=== PATIENT | female | born 1945 | race Caucasian/White ===

== ENCOUNTER → 2018-01-08 07:49 | Outpatient (CLI) | payer MEDICARE, OTHER ==
[2016-09-24 16:20] VITALS: BMI 32.1
[~2018-01-08 07:49] MED LIST: BAYER CHEWABLE81 MG PO; CLEOCIN HCL300 MG PO; EFFEXOR XR150 MG PO; GLUCOPHAGE1000 MG PO; HUMALOG 30100 UNITS/ INJ; LIPITOR10 MG PO; LOPRESSOR50 MG PO; LOSARTAN POTASS25 MG PO; MOBIC7.5 MG PO; MUCINEX DM ER1 EAC1 PO; PLAVIX75 MG PO; PRAVACHOL20 MG; PRAVACHOL20 MG PO; PREDNISONE; SYNTHROID112 MCG PO; TOPROL XL50 MG PO; XANAX0.25 MG PO
== END | disposition home or self-care (01) ==
LOC: D.RAD 07:49
DX: R13.10 Dysphagia, unspecified (principal)

== ENCOUNTER 2018-01-09 06:02 | Outpatient (CLI) | payer MEDICARE, OTHER ==
[2016-09-24 16:20] VITALS: BMI 32.1
--- NOTE | ~2018-01-09 | HEMODYNAMI ---
PATIENT:GARRET FERGUSON MEDICAL RECORD: [id number] : 49 LOCATION:DJAMI ADMISSION DATE: 01/09/18 Generatedon:01/09/20188:34 Patient name: GARRET FERGUSON Patient #: [id number] SSN: : 1945 Date of study: 01/09/2018 Page: Of Hemodynamic Procedure Report Patient Data Patient Demographics Procedure consent was obtained First Name: GARRET Gender: Female Last Name: MARTY : 1945 Patient #: [id number] Age: 72 year(s) Race: Unknown Additional ID: [id number] Contact details Address: [address] [place], [place] [address] [facility] State: [place] [facility] [place]: [address] Past Medical History Allergies Allergen Reaction Date Comments Reported Sulfa drugs 03/14/2016 Shellfish 03/14/2016 Sulfa drugs 01/09/2018 Shellfish 01/09/2018 Other allergy 01/09/2018 lisinopril Admission Admission Data Admission Date: 01/09/2018 Admission Time: 6:02 Procedure Procedure Types Cath Procedure Diagnostic Procedure LHC LHC w/Coronaries w/Grafts PCI Procedure PTCA PTCA Initial Miscellaneous Procedures Moderate Sedation up to 30 minutes Procedure Description Procedure Date Procedure Date: 01/09/2018 Procedure Start Time: 8:04 Procedure End Time: 8:33 Procedure Staff Name Function Nakul Escalante MD Performing Physician Rajwinder Tam RT Monitor Finn Gottlieb RT Scrub Lukas Humphrey RN Nurse Greg Fulton RN Bakery Worker Procedure Data Cath Procedure Fluoroscopy Diagnostic fluoroscopy Total fluoroscopy Time: 6.3 time: 6.3 min min Diagnostic fluoroscopy Total fluoroscopy dose: 853 dose: 853 mGy mGy Contrast Material Contrast Material Type Amount (ml) Isovue 300 105 Entry Location Entry Primary Successful Side Size Upsize Upsize Entry Closure Succes sful Closure Location (Fr) 1 (Fr) 2 (Fr) Remarks Device Remarks Femoral Right 5 Fr 6 Fr Exoseal artery Short Estimated blood loss: 10 ml Diagnostic catheters Device Type Used For End Catheter Placement MULTIPACK JL 4.0 5Fr Left Coronary catheter Angiography MULTIPACK 3DRC 5Fr Right Coronary catheter Angiography DIAGNOSTIC IMT 5Fr Internal mammary Catheter ([id number]) arteriography MULTIPACK Pigtail 5 Fr LV Angiography catheter Procedure Complications No complications Procedure Medications Medication Administration Route Dosage 0.9% NaCl I.V. 100 ml/hr Oxygen NC 2 l/min Heparin Flush Bag added to field 2 bags (1000units/500ml NS) Lidocaine 2% added to field 20 Benadryl I.V. 50 mg Versed I.V. 2 mg Fentanyl I.V. 100 mcg Heparin Bolus I.V. 8400 units Plavix P.O. 600 mg Hemodynamics Rest Heart Rate: 66 (bpm) Pressure Samples Time Site Value (mmHg) Purpose Heart Use Rate(bpm) 8:15 LV 173/-3,18 EDP 63 8:16 LV 195/-6,16 Snapshot 76 8:16 AO (114) Pullback 63 8:16 LV 176/-5,19 Pullback 63 Gradients Valve Time Site 1 Site Mean SEP/DFP Peak To Heart Use 2 (mmHg) (sec/min) Peak Rate (mmHg) (bpm) Aortic 8:16 LV AO 8 18 63 176/-5,19 (114) Calculations Valve P-P Mean Valve Index Valve Source Name Gradient Area Flow (cm2) Aortic 8 8 Snapshots Pre Cath Intra NCS Post Cath Vital Signs Time Heart Resp SPO2 etCO2 NIBP (mmHg) Rhythm Pain Sedation Rate (ipm) (%) (mmHg) Status Level (bpm) 7:52:21 67 12 97 36.4 177/82(139) NSR 0 (11) 10(A) , No pain 7:57:12 69 14 98 41.7 180/76(120) NSR 0 (11) 10(A) , No pain 8:02:01 72 13 97 43.9 164/71(119) NSR 0 (11) 9(A) , No pain 8:06:50 72 13 98 45.4 162/71(126) NSR 0 (11) 9(A) , No pain 8:12:21 76 14 97 44.7 178/75(134) NSR 0 (11) 9(A) , No pain 8:17:10 75 14 97 46.2 167/68(125) NSR 0 (11) 9(A) , No pain 8:21:57 73 14 97 46.2 159/76(133) NSR 0 (11) 9(A) , No pain 8:26:46 76 14 97 45.5 156/67(118) NSR 0 (11) 10(A) , No pain 8:31:33 77 16 98 31.8 170/74(137) NSR 0 (11) 10(A) , No pain Medications Time Medication Route Dose Verified Delivered Reason Notes Effectiveness by by 7:48:32 0.9% NaCl I.V. 100 Lukas Lukas Per physician ml/hr Milagro Humphrey RN RN 7:48:47 Oxygen NC 2 Lukas Lukas Per physician l/min Milagro Humphrey RN RN 7:48:58 Heparin Flush added 2 Lukas Lukas for local Bag to bags Lorigan Milagro anesthetic (1000units/500ml field NÚÑEZ RN NS) 7:49:11 Lidocaine 2% added 20ml Lukas Lukas for local to vial Lorigan Lorabigail anesthetic field NÚÑEZ RN 7:49:30 Benadryl I.V. 50 mg Lukas Lukas Per physician Milagro Humphrey RN RN 7:57:05 Versed I.V. 2 mg Lukas Lukas for sedation Milagro Humphrey RN RN 7:57:15 Fentanyl I.V. 100 Lukas Lukas for sedation mcg Milagro Humphrey RN RN 8:22:43 Heparin Bolus I.V. 8,400 Lukas Lukas for units Milagro Humphrey anticoagulation RN RN 8:34:02 Plavix P.O. 600 Lukas Lukas for mg Milagro Humphrey antiplatelet RN RN therapy Procedure Log Time Note 7:32:45 Greg Fulton RN sent for patient. Start room use. 7:32:46 Time tracking: Regular hours 7:32:50 Plan of Care:Hemodynamics will remain stable., Cardiac rhythm will remain stable., Comfort level will be maintained., Respiratory function will remain adequate., Patient/ family verbilizes understanding of procedure., Procedure tolerated without complication., Recovers from procedure without complications.. 7:40:00 Patient received from Pre/Post Procedure Room to [facility] 1 Alert and oriented. Tansferred to table in Supine position. 7:40:01 Warm blankets applied, and diego hugger turned on for patient comfort. 7:40:02 Correct patient and procedure confirmed by team. 7:40:03 Signed procedure consent form obtained from patient. 7:40:04 ECG and BP/O2 sat monitors applied to patient. 7:48:32 0.9% NaCl 100 ml/hr I.V. was administered by Lukas Humphrey RN; Per physician; 7:48:47 Oxygen 2 l/min NC was administered by Lukas Humphrey RN; Per physician; 7:48:58 Heparin Flush Bag (1000units/500ml NS) 2 bags added to field was administered by Lukas Humphrey RN; for local anesthetic; 7:49:11 Lidocaine 2% 20ml vial added to field was administered by Lukas Humphrey RN; for local anesthetic; 7:49:30 Benadryl 50 mg I.V. was administered by Lukas Humphrey RN; Per physician; 7:49:33 Vital chart was started 7:50:11 Baseline sample Acquired. 7:50:35 Rhythm: sinus rhythm 7:50:37 Full Disclosure recording started 7:50:50 H&P Date Dictated: 01/09/2018 Within 30 days and on chart., H&P Addendum completed by physician on day of procedure. (MUST COMPLETE FOR ALL OUTPATIENTS). 7:51:21 Pre-procedure instructions explained to patient. 7:51:21 Pre-op teaching completed and patient verbalized understanding. 7:51:28 Family in patients room. 7:51:33 Patient NPO since Midnight. 7:51:59 Patient allergic to Sulfa drugs 7:52:05 Patient allergic to Shellfish 7:52:17 Patient allergic to Other allergylisinopril 7:52:53 Is the patient allergic to Iodine/contrast media? No. 7:53:22 patient allergic to shellfish. 7:53:25 Was the patient premedicated? Yes 7:53:27 Is patient on blood thinner?No 7:53:30 Patient diabetic? Yes. 7:53:32 If diabetic: On Metformin? Yes 7:54:26 If on Metformin: Last Dose? 01/07/2018 7:54:30 Previous problem with sedation/anesthesia? No ? 7:54:31 Snore? Yes 7:54:31 Sleep apnea? Yes 7:54:32 Deviated septum? No 7:54:33 Opens mouth fully? Yes 7:54:34 Sticks out tongue? Yes 7:54:36 Airway obstruction? No ? 7:54:38 Dentures? No ? 7:54:40 Pre procedure: right dorsailis pedis pulse 2+ Normal; easily identifiable; not easily obliterated 7:54:44 Patient pain scale 0/10 ?. 7:54:48 IV patent on arrival in left hand with 0.9% NaCl at [facility]. 7:54:51 Lab results completed and on chart. 7:54:53 Right groin area was prepped with chlora-prep and draped in sterile fashion 7:54:54 Alarms reviewed by R. N. 7:54:54 Sharps counted by scrub and verified by R.N. 7:54:58 Use device set Femoral Dx 7:54:59 ACIST Syringe (01535) opened to sterile field. 7:54:59 Bag Decanter (2002S) opened to sterile field. 7:55:00 Medline Cath Pack ([id number]) opened to sterile field. 7:55:00 SHEATH 5FR [place] (LNK733) opened to sterile field. 7:55:01 DIAGNOSTIC WIRE .035 260cm J wire (989490) opened to sterile field. 7:55:02 ACIST Hand Control (02356) opened to sterile field. 7:55:03 ACIST Manifold (22152) opened to sterile field. 7:55:04 DIAGNOSTIC Multipack 5Fr catheter set (LN8655) opened to sterile field. 7:55:05 Tegaderm 4 x 4 (1626W) opened to sterile field. 7:55:06 PERCUTANEOUS ENTRY 19GA needle opened to sterile field. 7:56:38 Final Timeout: patient, procedure, and site verified with staff and physician. All members of the team are in agreement. 7:56:39 Right groin site verified by team. 7:56:42 Physical assessment completed. ASA score P 2 - A patient with mild systemic disease as per Nakul Escalante MD. 7:56:46 Sedation plan: IV Moderate Sedation Medication:Versed, Fentanyl 7:57:05 Versed 2 mg I.V. was administered by Lukas Humphrey RN; for sedation; 7:57:15 Fentanyl 100 mcg I.V. was administered by Lukas Humphrey RN; for sedation; 8:02:51 Zero performed for pressure channel P1 8:04:45 Procedure started. 8:04:59 Local anesthetic to right femoral artery with Lidocaine 2% by Nakul Escalante MD.INITIAL ACCESS ONLY 8:06:39 A 5 Fr sheath was inserted into the Right Femoral artery 8:07:09 A MULTIPACK JL 4.0 5Fr catheter was advanced over the wire and used for Left Coronary Angiography. 8:09:29 Catheter removed. 8:10:04 A MULTIPACK 3DRC 5Fr catheter was advanced over the wire and used for Right Coronary Angiography. 8:11:07 Catheter removed. 8:12:02 A DIAGNOSTIC IMT 5Fr Catheter ([id number]) was advanced over the wire and used for Internal mammary arteriography.FLORY to LAD 8:14:37 Catheter removed. 8:15:46 A MULTIPACK Pigtail 5 Fr catheter was advanced over the wire and used for LV Angiography. 8:16:10 LV gram done using AARON 8:16:12 LV hemodynamics recorded. 8:16:14 Injector settings: Ml/sec: 10, Volume: 20, 8:16:23 EF : 60 % 8:17:05 Catheter removed. 8:17:14 Use device set Motivity Labs PCI 8:17:15 INFLATOR Merit BasixCompak (BZ3650) opened to sterile field. 8:17:17 SHEATH 6FR [place] (ZGX135) opened to sterile field. 8:17:19 BMW 300cm Davis 2 J wire ([id number]) opened to sterile field. 8:17:21 GUIDE 6FR XBLAD 3.5 catheter ([id number]) opened to sterile field. 8:17:32 Sheath upsized to a 6 Fr Short. 8:17:40 6 Fr XBLAD 3.5 guide catheter was inserted over the wire 8:18:43 TUBING High Pressure Extension Tubing (Escalante) (RF6543U) opened to sterile field. 8:22:01 BMW wire advanced. 8:22:43 Heparin Bolus 8,400 units I.V. was administered by Lukas Humphrey RN; for anticoagulation; 8:25:11 Inflation number: 1 A EUPHORA 3.0 x 20 Balloon ([id number]) was prepped and advanced across the Mid CX, then inflated to 14 REGINA for 0:29 (min:sec). 8:25:35 Inflation number: 2 The EUPHORA 3.0 x 20 Balloon ([id number]) was reinflated across the Mid CX, to 14 REGINA for 0:09 (min:sec). 8:26:16 Inflation number: 3 The EUPHORA 3.0 x 20 Balloon ([id number]) was reinflated across the Mid CX, to 14 REGINA for 0:19 (min:sec). 8:27:22 Stent catheter was removed intact over wire. 8:27:22 Wire removed. 8:27:22 Guide catheter removed. 8:27:35 Sheath removed intact; hemostasis achieved with Exoseal to the Right Femoral artery. 8:27:37 Procedure ended.(Physican Out) 8:27:50 Fluoroscopy time 06.30 minutes. 8:28:04 Flurop Dose total: 853 8:28:04 Fluoroscopy dose: 853 mGy 8:28:07 Contrast amount:Isovue 300 105ml. 8:28:10 EXOSEAL 6Fr (EX600) opened to sterile field. 8:28:13 Sharps counted by scrub and verified by R.N. 8:28:15 Insertion/operative site no bleeding no hematoma. 8:28:17 Post-op/insertion site Right Femoral artery dressed using a 4 x 4 and Tegaderm. 8:28:20 Post right femoral artery:stable, clean and dry 8:28:22 Post Procedure Pulses reassessed and unchanged 8:28:25 Post-procedure physical assessment completed. ASA score P 2 - A patient with mild systemic disease as per Nakul Escalante MD. 8:28:27 Post procedure rhythm: unchanged. 8:28:30 Estimated blood loss: 10 ml 8:28:32 Post procedure instruction explained to patient.Patient verbalizes understanding. 8:28:32 Patient needs reinforcement of post procedure teaching. 8:28:43 Procedure type changed to Cath procedure, Diagnostic procedure, LHC, LHC w/Coronaries w/Grafts, PCI procedure, PTCA, PTCA Initial, Miscellaneous Procedures, Moderate Sedation up to 30 minutes 8:29:25 Procedure Complication : No complications 8:29:28 See physician's report for complete and final results. 8:30:47 Procedure and supply charges have been captured, reviewed, submitted and are correct. 8:32:43 Vital chart was stopped 8:32:45 Report given to Pre/Post Procedure Room. 8:32:49 Patient transfered to Pre/Post Procedure Room with Stretcher. 8:32:59 Procedure ended. 8:32:59 Full Disclosure recording stopped 8:33:33 End room use (Document Last) 8:34:02 Plavix 600 mg P.O. was administered by Lukas Humphrey RN; for antiplatelet therapy; Intervention Summary Intervention Notes Time ActionType Lesion and Equipment Action# Pressure Duration Attributes Used 8:25:11 Inflate Mid CX EUPHORA 1 14 00:29 balloon 3.0 x 20 Balloon ([id number]) 8:25:35 Reinflate Mid CX EUPHORA 2 14 00:09 balloon 3.0 x 20 Balloon ([id number]) 8:26:16 Reinflate Mid CX EUPHORA 3 14 00:19 balloon 3.0 x 20 Balloon ([id number]) Device Usage Item Name Manufacture Quantity Catalog Number Hospital Part Current Mini mal Lot# / Charge Number Stock Stock Serial# Code ACIST Acist 1 23075 191263 229063 044800 20 Syringe Medical (71009) Systems Inc Bag Decanter Microtek 1 2001S 302937 54319 155058 5 (2001S) Medical Inc. Medline Cath Cardinal 1 [id number] 717589 83637 577296 5 Pack Health ([id number]) SHEATH 5FR Terumo 1 FJC735 718748 493149 349047 40 [place] (UGB496) DIAGNOSTIC St Balta 1 969785 338003 480598 839278 30 WIRE .035 260cm J wire (487812) ACIST Hand Acist 1 79994 911460 299100 947022 5 Control Medical (27688) Systems Inc ACIST Acist 1 87055 369627 484177 262089 5 Manifold Medical (94120) Systems Inc DIAGNOSTIC Cardinal 1 OO4946 874464 86522 725232 30 Multipack Health 5Fr catheter set (MH6690) Tegaderm 4 x 3M 1 1626W 197493 584184 962582 5 4 (1626W) PERCUTANEOUS Cook Medical 1 C31762 780736 554917 5 ENTRY 19GA needle MULTIPACK JL Cardinal 1 003176 5 4.0 5Fr Health catheter MULTIPACK Cardinal 1 378846 5 3DRC 5Fr Health catheter DIAGNOSTIC Reynolds 1 [id number] 426408 757065 52323 5 IMT 5Fr Scientific Catheter ([id number]) MULTIPACK Cardinal 1 958414 5 Pigtail 5 Fr Health catheter INFLATOR Merit 1 HK4961 228192 433531 531652 15 Merit Medical BasixCompak (QJ1730) SHEATH 6FR Terumo 1 BEI775 855878 574905 923283 40 [place] (DOS263) BMW 300cm Desai 1 [id number] 175516 593469 583535 5 Davis 2 Vascular J wire (6773385V) GUIDE 6FR Cardinal 1 12187397 411384 832158 207998 10 XBLAD 3.5 Health catheter (04407839) TUBING High Merit 1 EA9412S 170599 66893 138597 10 Pressure Medical Extension Tubing (Escalante) (TA2697D) EUPHORA 3.0 Medtronic 1 [id number] 126052 545478 130445 5 [id number] x 20 Balloon ([id number]) EXOSEAL 6Fr Cardinal 1 EX600 055224 411855 374047 10 (EX600) Health Signature Audit [place] Stage Time Signature Unsigned Intra-Procedure 01/09/2018 Rajwinder 8:34:30 AM Counts RT(R) Signatures Monitor : Rajwinder Signature : Counts RT Date : Time : [id number] [place] [address]
[~2018-01-09 06:02] MED LIST changes: -LOSARTAN POTASS25 MG PO
[2018-01-09] MEDS ORDERED: LOSARTAN POTASS25 MG PO (06:33)
[2018-01-09] MEDS ORDERED: LIPITOR10 MG PO (06:34)
[2018-01-09 06:36] LABS: BASOPHILS 0.4 % (0-2); EOSINOPHILS 0.8 % (0-7); HEMATOCRIT 38.5 % (36.0-48.0); HEMOGLOBIN 12.9 g/dL (12-16); IMMATURE GRANULOCYTES 0.3 % (0-5); LYMPHOCYTES 30.7 % (15-50); MCH 28.8 pg (26.0-34.0); MCHC 33.5 g/dL (31.0-37.0); MCV 85.9 fL (80.0-100.0); MONOCYTES 6.7 % (2-11); NEUTROPHILS 61.1 % (40-80); PLATELET COUNT 216 10x3/uL (130-400); RBC 4.48 10x6/uL (4.00-5.40); RDW 12.9 % (11.5-14.5); WBC 7.2 10x3/uL (4.8-10.8)
[2018-01-09 07:27] LABS: ANION GAP 14.4 mmol/L (8-16); CALCIUM 9.5 mg/dL (8.5-10.1); CARBON DIOXIDE 26.6 mmol/L (21.0-32.0); CREATININE - SERUM 0.9 mg/dL (0.6-1.3)
[2018-01-09] MEDS ORDERED: PLAVIX75 MG PO (09:26)
== END 2018-01-09 13:05 | disposition home or self-care (01) ==
LOC: D.CATH 06:02
PROVIDERS: Internal Medicine Cardiovascular Disease
DX: I25.119 Atherosclerotic heart disease of native coronary artery with unspecified angina pectoris (principal); I10 Essential (primary) hypertension; E78.5 Hyperlipidemia, unspecified; Z01.812 Encounter for preprocedural laboratory examination

== ENCOUNTER 2018-01-27 06:27 | Day surgery (SDC) | payer MEDICARE, OTHER ==
[~2018-01-27] VITALS: Ht 160 cm; Wt 83.6 kg
[~2018-01-27 06:27] MED LIST changes: +LOSARTAN POTASS25 MG PO
[2018-01-27 07:10] VITALS: BP 156/68; Ht 160 cm; Wt 83.6 kg
[2018-01-27 08:16] LABS: HEMATOCRIT 34.8 % (36.0-48.0); HEMOGLOBIN 11.2 g/dL (12-16); MCH 27.9 pg (26.0-34.0); MCHC 32.2 g/dL (31.0-37.0); MCV 86.6 fL (80.0-100.0); MEAN PLATELET VOLUME 10.1 fL (7.4-10.4); RBC 4.02 10x6/uL (4.00-5.40); RDW 12.8 % (11.5-14.5); WBC 6.2 10x3/uL (4.8-10.8)
[2018-01-27 08:19] LABS: CALC OSMOLALITY 284 mosm/kg (275-300); CALCIUM 8.8 mg/dL (8.5-10.1); CHLORIDE - SERUM 109 mmol/L (98-107); CREATININE - SERUM 0.8 mg/dL (0.6-1.3); GLUCOSE 107 mg/dL (74-106); POTASSIUM - SERUM 3.5 mmol/L (3.5-5.1); SODIUM 143 mmol/L (136-145); UREA NITROGEN 13 mg/dL (7-18); eGFR NON AFRICAN AMERICAN 75 mL/min (90-120)
== END 2018-01-27 11:16 | disposition home or self-care (01) ==
LOC: D.OPS 06:27
PROVIDERS: Anesthesiology
DX: R13.10 Dysphagia, unspecified (principal); R11.10 Vomiting, unspecified; E66.9 Obesity, unspecified; E11.9 Type 2 diabetes mellitus without complications; I10 Essential (primary) hypertension; E03.9 Hypothyroidism, unspecified; G47.30 Sleep apnea, unspecified; Z95.1 Presence of aortocoronary bypass graft; Z01.812 Encounter for preprocedural laboratory examination

== ENCOUNTER 2018-03-03 05:12 | Day surgery (SDC) | payer MEDICARE, OTHER ==
[~2018-03-03] VITALS: Ht 160 cm; Wt 85.7 kg
[2018-03-03 06:11] LABS: HEMATOCRIT 39.1 % (36.0-48.0); MCH 28.9 pg (26.0-34.0); MCHC 33.2 g/dL (31.0-37.0); MCV 86.9 fL (80.0-100.0); MEAN PLATELET VOLUME 9.9 fL (7.4-10.4); RBC 4.5 10x6/uL (4.00-5.40); RDW 12.7 % (11.5-14.5); WBC 7.2 10x3/uL (4.8-10.8)
[2018-03-03] MEDS ORDERED: GLYBURIDE5 M1 PO (06:12)
[2018-03-03 06:31] VITALS: BP 151/61; BMI 33.5
[2018-03-03 06:32] LABS: ANION GAP 12.6 mmol/L (8-16); CALCIUM 8.8 mg/dL (8.5-10.1); CARBON DIOXIDE 28.5 mmol/L (21.0-32.0); CREATININE - SERUM 0.9 mg/dL (0.6-1.3); POTASSIUM - SERUM 4.1 mmol/L (3.5-5.1)
[2018-03-03] MEDS ORDERED: HYDROCODON-ACE1 EAC7 PO (11:50)
[2018-03-04 12:25] VITALS: Ht 160 cm; Wt 85.7 kg
== END 2018-03-03 12:25 | disposition home or self-care (01) ==
LOC: OBSVTIME → D.OPS 05:12 → OBSVTIME 05:12 → D.SDCHOLD 05:12 → D.OPS 08:00 → D.PAN 08:00 → EDSTATUS 08:00 → D.SDCHOLD 12:25 → D.OPS 12:25 → D.SDCHOLD 12:25
PROVIDERS: Anesthesiology; Surgery
PROC: 0JPT3WZ Removal of Totally Implantable Vascular Access Device from Trunk Subcutaneous Tissue and Fascia, Percutaneous Approach (ICD-10-PCS; 2018-03-03)
PROC: 0DP64CZ Removal of Extraluminal Device from Stomach, Percutaneous Endoscopic Approach (ICD-10-PCS; principal; 2018-03-03 08:00)
DX: R13.10 Dysphagia, unspecified (principal); E66.9 Obesity, unspecified; K21.9 Gastro-esophageal reflux disease without esophagitis; Z68.35 Body mass index [BMI] 35.0-35.9, adult; E78.5 Hyperlipidemia, unspecified; E11.9 Type 2 diabetes mellitus without complications; I10 Essential (primary) hypertension; R11.10 Vomiting, unspecified; E03.9 Hypothyroidism, unspecified; Z79.4 Long term (current) use of insulin; Z96.41 Presence of insulin pump (external) (internal); M79.7 Fibromyalgia

== ENCOUNTER 2018-03-03 15:40 | Inpatient (IN) | payer MEDICARE, OTHER ==
[~2018-03-03] VITALS: Ht 160 cm; Wt 84.1 kg
--- NOTE | ~2018-03-03 | CN ---
PATIENT NAME:GARRET FERGUSON MEDICAL RECORD: [id number] : 49 LOCATION:. D.2113 ADMIT DATE: 03/04/18 ACCOUNT: [id number] CONSULTING PHYSICIAN: BAILEE BAUMANN MD REFERRING PHYSICIAN: HARRY BAILEY MD DATE OF CONSULTATION: 03/04/2018 Cardiology Consultation HISTORY OF PRESENT ILLNESS: She is a 73-year-old lady with a known history of coronary artery disease, status post most recently PCI to circumflex restenosis. She has a history of normal systolic function, admitted postoperatively with anemia, hyperglycemia, and syncope. She has been having some dyspnea and breathlessness slight multifactorial including intravascular volume depletion and anemia that is improving post-transfusion. We are asked to see her concerning her cardiovascular status. PAST MEDICAL HISTORY: Includes: 1. A history of diabetes mellitus. 2. Hypertension. 3. Dyslipidemia. 4. Gastroesophageal reflux disease. 5. Hypothyroidism, on replacement. MEDICATIONS: Include Glucophage 1 gram b.i.d., insulin pump, glyburide 5 mg p.o. every day, Synthroid 112 mcg every day, Mobic 7.5 b.i.d., aspirin 81 every day, Effexor 150 every day, losartan 25 every day, Lipitor 10 every day, metoprolol 25 every day. ALLERGIES: SULFA AND IODINE. SOCIAL HISTORY: , nonsmoker. Typically, takes care of all her ADLs. No set exercise program. REVIEW OF SYSTEMS: The patient reports easy bruising but reports no swollen glands. The patient reports no fever, no night sweats, no significant weight gain, no significant weight loss. No significant exercise tolerance. The patient reports no dry eyes, no irritation, no vision change. Patient reports no difficulty hearing and no ear pain. Patient reports no frequent nose bleeds or nose and sinus problems. Patient reports on arm pain on exertion. No shortness of breath while lying down. No history of heart murmur. Patient reports no cough, no wheezing or coughing up blood. Patient reports no abdominal pain, no vomiting. Normal appetite. No diarrhea and not vomiting blood. No nausea and no constipation. Patient reports no incontinence. No difficulty urinating. No hematuria. No increased frequency. Patient reports no muscle aches. No weakness, no arthralgias, no back pain. No swelling of the extremities. Patient reports no abnormal mole, no jaundice, no rashes. Reports no loss of consciousness. No weakness and no numbness. No seizures, dizziness, or headaches. The patient reports no depression, no sleep disturbance, feeling safe in a relationship and no alcohol abuse. Patient reports on fatigue. Reports no runny nose or sinus pressure. No itching, no hives, and no frequent sneezing. PHYSICAL EXAMINATION. GENERAL: Pleasant female in no acute distress, appears stated age. CONSULT REPORT [id number] GARRET FERGUSON VITAL SIGNS: Blood pressure 153/67, pulse 114 and regular. HEENT: Normocephalic, atraumatic. NECK: No JVD or bruit. HEART: Regular, II/ systolic ejection murmur, heard best primarily in aortic area. LUNGS: Good air excursion. ABDOMEN: Soft, nontender. EXTREMITIES: Pulse 2+. No edema. NEUROLOGIC: Grossly intact. IMPRESSION: Suspect more of a high output failure type symptomatology secondary to anemia. LV function normal approximately 2 months ago. Agree with transfusion. Thank you for the consultation. TRANSINT:[id number] Voice Confirmation ID: [id number] DOCUMENT ID: [id number] BAILEE BAUMANN MD at 1325 CC: [id number] DICTATION DATE: 03/04/18 1403 STATE EDITOR: 03/04/18 1518 ADM IN [address] [place] [address]
[~2018-03-03 15:40] MED LIST changes: +GLYBURIDE5 M1 PO; +HYDROCODON-ACE1 EAC7 PO
[2018-03-03 17:02] LABS: HEMOGLOBIN 9.7 g/dL (12-16); MCH 28.7 pg (26.0-34.0); MCHC 32.3 g/dL (31.0-37.0); MCV 88.8 fL (80.0-100.0); MEAN PLATELET VOLUME 10.5 fL (7.4-10.4); PLATELET COUNT 278 10x3/uL (130-400); RBC 3.38 10x6/uL (4.00-5.40); RDW 12.8 % (11.5-14.5); WBC 22.1 10x3/uL (4.8-10.8)
[2018-03-03 17:08] LABS: KETONE - SERUM NEGATIVE (NEGATIVE)
[2018-03-03 17:14] LABS: EOSINOPHILS 1 % (0-7); LYMPHOCYTES 9 % (15-50); NEUTROPHILS 90 % (40-80); PLATELET ESTIMATE NORMAL
[2018-03-03 17:16] LABS: ALKALINE PHOSPHATASE 85 U/L (46-116); ALT (SGPT) 56 U/L (10-68); CALCIUM 7.9 mg/dL (8.5-10.1); CHLORIDE - SERUM 105 mmol/L (98-107); PROTEIN - SERUM 5.9 g/dL (6.4-8.2); SODIUM 134 mmol/L (136-145)
[2018-03-03 17:19] LABS: CALC OSMOLALITY 289 mosm/kg (275-300); CREATININE - SERUM 1.6 mg/dL (0.6-1.3); UREA NITROGEN 17 mg/dL (7-18)
[2018-03-03 17:20] LABS: POTASSIUM - SERUM 5.6 mmol/L (3.5-5.1); eGFR NON AFRICAN AMERICAN 34 mL/min (90-120)
[2018-03-03 17:26] LABS: GLUCOSE 463 mg/dL (74-106)
[2018-03-03 20:29] VITALS: BP 143/43
[2018-03-03 22:55] LABS: BASOPHILS 0.1 % (0-2); EOSINOPHILS 0 % (0-7); HEMATOCRIT 24.8 % (36.0-48.0); HEMOGLOBIN 8.2 g/dL (12-16); IMMATURE GRANULOCYTES 0.2 % (0-5); LYMPHOCYTES 7.5 % (15-50); MCH 28.6 pg (26.0-34.0); MCHC 33.1 g/dL (31.0-37.0); MEAN PLATELET VOLUME 9.6 fL (7.4-10.4); MONOCYTES 4.2 % (2-11); PLATELET COUNT 233 10x3/uL (130-400); RBC 2.87 10x6/uL (4.00-5.40); RDW 12.8 % (11.5-14.5); WBC 16.5 10x3/uL (4.8-10.8)
[2018-03-03 22:56] LABS: MCV 86.4 fL (80.0-100.0)
[2018-03-03 23:12] LABS: CALCIUM 8.1 mg/dL (8.5-10.1); CARBON DIOXIDE 26.4 mmol/L (21.0-32.0)
[2018-03-03 23:15] LABS: CREATININE - SERUM 1.1 mg/dL (0.6-1.3); POTASSIUM - SERUM 4.4 mmol/L (3.5-5.1)
[2018-03-04 01:05] VITALS: BP 139/50
[2018-03-04 05:58] VITALS: BP 147/48
[2018-03-04 06:41] LABS: BASOPHILS 0.2 % (0-2); EOSINOPHILS 0.3 % (0-7); HEMATOCRIT 27.4 % (36.0-48.0); HEMOGLOBIN 8.9 g/dL (12-16); IMMATURE GRANULOCYTES 0.3 % (0-5); MCH 27.2 pg (26.0-34.0); MCHC 32.5 g/dL (31.0-37.0); MEAN PLATELET VOLUME 9.7 fL (7.4-10.4); MONOCYTES 8.8 % (2-11); NEUTROPHILS 77.4 % (40-80); PLATELET COUNT 227 10x3/uL (130-400); RBC 3.27 10x6/uL (4.00-5.40); RDW 14.3 % (11.5-14.5); WBC 17.5 10x3/uL (4.8-10.8)
[2018-03-04 06:47] LABS: MCV 83.8 fL (80.0-100.0)
[2018-03-04 06:56] LABS: INR 1.13 (0.85-1.17); PROTIME 14.1 SECONDS (11.6-15.0)
[2018-03-04 07:10] LABS: ALBUMIN 2.6 g/dL (3.4-5.0); ANION GAP 8.7 mmol/L (8-16); BILIRUBIN - TOTAL 0.4 mg/dL (0.2-1.3); CALCIUM 8.2 mg/dL (8.5-10.1); CARBON DIOXIDE 25.4 mmol/L (21.0-32.0); MAGNESIUM - SERUM 1.7 mg/dL (1.8-2.4); PHOSPHOROUS 3.7 mg/dL (2.5-4.9); POTASSIUM - SERUM 4.1 mmol/L (3.5-5.1); PROTEIN - SERUM 5.8 g/dL (6.4-8.2)
[2018-03-04 08:21] VITALS: BP 128/39
[2018-03-04 12:25] VITALS: Ht 160 cm; Wt 84.1 kg
[2018-03-04 13:51] VITALS: BP 152/67
[2018-03-04 15:32] LABS: CKMB 2.2 U/L (0.0-3.6); CREATINE KINASE 375 UL (21-215)
[2018-03-04 15:37] LABS: TROPONIN-I 0.132 ng/mL (0.000-0.060)
[2018-03-04 21:03] VITALS: BP 149/51
[2018-03-04 22:33] LABS: CKMB 1.4 U/L (0.0-3.6); CREATINE KINASE 316 UL (21-215)
[2018-03-04 22:42] LABS: TROPONIN-I 0.145 ng/mL (0.000-0.060)
[2018-03-05 01:23] VITALS: BP 133/52
[2018-03-05 05:29] VITALS: BP 133/43
[2018-03-05 05:50] LABS: CALC OSMOLALITY 280 mosm/kg (275-300); CALCIUM 8.6 mg/dL (8.5-10.1); CARBON DIOXIDE 30.4 mmol/L (21.0-32.0); CHLORIDE - SERUM 104 mmol/L (98-107); CKMB 1.1 U/L (0.0-3.6); CREATINE KINASE 281 UL (21-215); CREATININE - SERUM 0.9 mg/dL (0.6-1.3); GLUCOSE 122 mg/dL (74-106); MAGNESIUM - SERUM 2.1 mg/dL (1.8-2.4); POTASSIUM - SERUM 3.8 mmol/L (3.5-5.1); PRO BNP 161 pg/mL (0-125); SODIUM 140 mmol/L (136-145); UREA NITROGEN 14 mg/dL (7-18); eGFR NON AFRICAN AMERICAN 65 mL/min (90-120)
[2018-03-05 07:19] LABS: BASOPHILS 0.1 % (0-2); EOSINOPHILS 2.1 % (0-7); HEMOGLOBIN 8.9 g/dL (12-16); IMMATURE GRANULOCYTES 0.4 % (0-5); LYMPHOCYTES 9.7 % (15-50); MCH 27.6 pg (26.0-34.0); MCV 83.9 fL (80.0-100.0); MEAN PLATELET VOLUME 9.9 fL (7.4-10.4); MONOCYTES 10.7 % (2-11); PLATELET COUNT 190 10x3/uL (130-400); RBC 3.22 10x6/uL (4.00-5.40); RDW 14.9 % (11.5-14.5); WBC 13.8 10x3/uL (4.8-10.8)
[2018-03-05 10:15] VITALS: BP 136/41
[2018-03-05 12:31] VITALS: BP 147/42
[2018-03-05 20:54] VITALS: BP 150/55
[2018-03-06 01:59] VITALS: BP 127/45
[2018-03-06 05:57] VITALS: BP 114/40
[2018-03-06 06:08] LABS: BASOPHILS 0.3 % (0-2); EOSINOPHILS 3.4 % (0-7); HEMATOCRIT 26.7 % (36.0-48.0); HEMOGLOBIN 8.7 g/dL (12-16); IMMATURE GRANULOCYTES 0.3 % (0-5); LYMPHOCYTES 15.7 % (15-50); MCH 27.8 pg (26.0-34.0); MCHC 32.6 g/dL (31.0-37.0); MCV 85.3 fL (80.0-100.0); MEAN PLATELET VOLUME 9.6 fL (7.4-10.4); MONOCYTES 9.5 % (2-11); NEUTROPHILS 70.8 % (40-80); PLATELET COUNT 183 10x3/uL (130-400); RBC 3.13 10x6/uL (4.00-5.40); RDW 14.2 % (11.5-14.5)
[2018-03-06 06:09] LABS: WBC 10.3 10x3/uL (4.8-10.8)
[2018-03-06 06:24] LABS: ANION GAP 9.3 mmol/L (8-16); CALCIUM 8.7 mg/dL (8.5-10.1); CARBON DIOXIDE 31.4 mmol/L (21.0-32.0); CREATININE - SERUM 0.9 mg/dL (0.6-1.3); POTASSIUM - SERUM 3.7 mmol/L (3.5-5.1)
[2018-03-06 07:00] VITALS: BP 138/52
== END 2018-03-06 14:28 | disposition home or self-care (01) | DRG 637 ==
LOC: D.ER 15:40 → D.EDHOLD 17:49 → D.M2 17:49 → OBSVTIME 17:49 → D.M2 17:49 → D.ER 17:49 → D.M2 18:32
PROVIDERS: Emergency Medicine; Family Medicine; Physician Assistant Medical; Surgery
DX: E11.10 Type 2 diabetes mellitus with ketoacidosis without coma (principal); I63.512 Cerebral infarction due to unspecified occlusion or stenosis of left middle cerebral artery; K91.870 Postprocedural hematoma of a digestive system organ or structure following a digestive system procedure; D62 Acute posthemorrhagic anemia; R47.01 Aphasia; Y83.8 Other surgical procedures as the cause of abnormal reaction of the patient, or of later complication, without mention of misadventure at the time of the procedure; I10 Essential (primary) hypertension; E78.5 Hyperlipidemia, unspecified; K21.9 Gastro-esophageal reflux disease without esophagitis; E03.9 Hypothyroidism, unspecified; E86.0 Dehydration; I25.10 Atherosclerotic heart disease of native coronary artery without angina pectoris; Z95.5 Presence of coronary angioplasty implant and graft; R40.2364 Coma scale, best motor response, obeys commands, 24 hours or more after hospital admission; R40.2144 Coma scale, eyes open, spontaneous, 24 hours or more after hospital admission; R40.2254 Coma scale, best verbal response, oriented, 24 hours or more after hospital admission

== ENCOUNTER → 2018-03-13 11:55 | Outpatient (CLI) | payer MEDICARE, OTHER ==
[2018-03-04 12:25] VITALS: BMI 35.6
== END | disposition home or self-care (01) ==
LOC: D.US 11:55
DX: I63.59 Cerebral infarction due to unspecified occlusion or stenosis of other cerebral artery (principal); R55 Syncope and collapse

== ENCOUNTER → 2018-04-15 05:54 | Outpatient (CLI) | payer MEDICARE, OTHER ==
[2018-03-04 12:25] VITALS: BMI 35.6
== END | disposition home or self-care (01) ==
LOC: D.MAMMO 05:54
DX: Z12.31 Encounter for screening mammogram for malignant neoplasm of breast (principal)

== ENCOUNTER 2018-07-12 21:09 | Observation (INO) | payer MEDICARE, OTHER ==
[~2018-07-12] VITALS: Ht 160 cm; Wt 80.3 kg
--- NOTE | ~2018-07-12 | ST ---
PATIENT:GARRET FERGUSON MEDICAL RECORD: [id number] SEX: F LOCATION:[address] ORDER #: ADMISSION DATE: 07/12/18 AGE OF PATIENT: 73 REFERRING PHYSICIAN: INTERPRETING PHYSICIAN: BRITTNEE MEDINA MD DATE OF SERVICE: 07/14/2018 PROCEDRUE: Lexiscan directed nuclear stress test. INDICATIONS: Chest discomfort. PROCEDURE IN DETAIL: The patient was brought into the nuclear lab, placed in supine position on the nuclear table. The patient had rest and stress imaging done with sestamibi, 8.9 mCi sestamibi injected at rest and 25.4 mCi sestamibi injected at stress. The patient had Lexiscan delivered via standard protocol without any difficulty. The patient tolerated the procedure. The patient's EKG did not substantially change from the stress. Nuclear imaging showed an ejection fraction of 63%. There were no significant regional wall motion abnormalities. There were no ischemic changes seen or visualized. CONCLUSION: This is a normal Lexiscan directed nuclear stress test in a patient with previous heart disease. Prognostically, the patient has low risk for cardiovascular event over the next year. TRANSINT:[id number] Voice Confirmation ID: [id number] DOCUMENT ID: [id number] BRITTNEE MEDINA MD at 0749 CC: [id number] DICTATION DATE: 07/15/18 0743 ELECTRIC SERVICEMAN: 07/15/18 1320 DIS IN 07/14/18 [address] [place] [address]
--- NOTE | ~2018-07-12 | EC ---
PATIENT:GARRET FERGUSON DATE OF SERVICE: 07/12/18 SEX: F MEDICAL RECORD: [id number] DATE OF : [birth year] LOCATION:D. D.211 AGE OF PATIENT: 73 ADMISSION DATE: 07/12/18 REFERRING PHYSICIAN: INTERPRETING PHYSICIAN: BRITTNEE MEDINA MD ECHOCARDIOGRAM REPORT ECHO CHARGES 4 ECHO COMPLETE Date: 07/13 CLINICAL DIAGNOSIS: CP ECHOCARDIOGRAPHIC MEASUREMENTS (adult normal given) AC root (d.<3.7cm) 3.1 cm LV Septum d (<1.2 cm> 1.4 cm Valve Excursion 1.7 cm LV Septum (systole) 1.9 cm Left Atria (s.<4.0cm> 4.0 cm LVPW d(<1.2cm) 0.9 cm RV (d.<2.3cm) 2.2 cm LVPW (sytole) 1.0 cm LV diastole(<5.6CM) 5.3 cm MV E-F(>70mm/sec) cm LV systole 4.0 cm LVOT Diameter 1.9 cm MV exc.(>10mm) cm Est.ejection fraction (50-75%) % DOPPLER: LVIT cm/sec A 103 cm/sec E 79 cm/sec LA cm/sec RVSP 16.8 mmHg LVOT 101 cm/sec AOP1/2T m/s Asc. Ao 161 cm/sec RVOT 79 cm/sec RA cm/sec PA 78 cm/sec AV Gradient Peak 10.4 mmHg AV Mean 6.8 mmHg AV Area 1.8 cm MV Gradient Peak 5.1 mmHg MV Mean 1.7 mmHg MV Area cm COMMENTS: Medical Record Librarian: Hu [facility] Baseball Inspector: Kendell Medina TAPE# PACS Pericardial Effusion N DATE OF SERVICE: FINDINGS: 1. Left ventricle has left ventricular hypertrophy. Inflow characteristics consistent with diastolic dysfunction. Ejection fraction is 60%. There is no regional wall motion abnormalities. 2. The left atrium is normal. 3. The aortic valve is normal. 4. The mitral valve is normal. 5. The tricuspid valve is normal. RVSP is normal. ECHOCARDIOGRAM REPORT [id number] GARRET FERGUSON 6. The right ventricle is normal. 7. The right atrium is normal. 8. The pulmonic valve is normal. CONCLUSIONS: This is a normal echocardiogram for patient's stated age with the exception of evidence of hypertensive heart disease. TRANSINT:[id number] Voice Confirmation ID: [id number] DOCUMENT ID: [id number] BRITTNEE MEDINA MD at 0749 CC: [id number] DICTATION DATE: 07/13/18 2254 SASH REPAIRER: 07/14/18 0548 DIS IN 07/14/18 [place] [place] [address] [place] [id number]
[2018-07-12 21:43] LABS: BASOPHILS 0.2 % (0-2); EOSINOPHILS 0.6 % (0-7); HEMATOCRIT 37.1 % (36.0-48.0); HEMOGLOBIN 12.8 g/dL (12-16); IMMATURE GRANULOCYTES 0.3 % (0-5); LYMPHOCYTES 30.8 % (15-50); MCH 29.1 pg (26.0-34.0); MCHC 34.5 g/dL (31.0-37.0); MCV 84.3 fL (80.0-100.0); MEAN PLATELET VOLUME 9.9 fL (7.4-10.4); MONOCYTES 6.6 % (2-11); NEUTROPHILS 61.5 % (40-80); WBC 9.1 10x3/uL (4.8-10.8)
[2018-07-12 21:45] LABS: PLATELET COUNT 234 10x3/uL (130-400)
[2018-07-12 21:53] LABS: APTT 28.9 SECONDS (22.8-39.4); INR 0.94 (0.85-1.17); PROTIME 12.2 SECONDS (11.6-15.0)
[2018-07-12 21:54] LABS: D-DIMER-QUANTITATIVE 0.51 ug/mLFEU (0.20-0.54)
[2018-07-12 22:10] LABS: ALBUMIN 3.4 g/dL (3.4-5.0); ALKALINE PHOSPHATASE 98 U/L (46-116); ALT (SGPT) 14 U/L (10-68); BILIRUBIN - TOTAL 0.28 mg/dL (0.2-1.3); CALC OSMOLALITY 282 mosm/kg (275-300); CALCIUM 9.2 mg/dL (8.5-10.1); CARBON DIOXIDE 29.5 mmol/L (21.0-32.0); CHLORIDE - SERUM 104 mmol/L (98-107); CKMB 0.5 U/L (0.0-3.6); CREATINE KINASE 41 UL (21-215); CREATININE - SERUM 0.9 mg/dL (0.6-1.3); GLUCOSE 169 mg/dL (74-106); MAGNESIUM - SERUM 1.9 mg/dL (1.8-2.4); POTASSIUM - SERUM 3.5 mmol/L (3.5-5.1); PROTEIN - SERUM 7.1 g/dL (6.4-8.2); SODIUM 139 mmol/L (136-145); TROPONIN-I 0.029 ng/mL (0.000-0.060); UREA NITROGEN 15 mg/dL (7-18); eGFR NON AFRICAN AMERICAN 65 mL/min (90-120)
[2018-07-12 22:56] VITALS: BP 167/68
[2018-07-13 03:57] LABS: BASOPHILS 0.2 % (0-2); EOSINOPHILS 1.1 % (0-7); HEMATOCRIT 38.3 % (36.0-48.0); HEMOGLOBIN 12.9 g/dL (12-16); IMMATURE GRANULOCYTES 0.3 % (0-5); LYMPHOCYTES 34.4 % (15-50); MCH 28.7 pg (26.0-34.0); MCHC 33.7 g/dL (31.0-37.0); MCV 85.3 fL (80.0-100.0); MEAN PLATELET VOLUME 9.9 fL (7.4-10.4); MONOCYTES 6.4 % (2-11); NEUTROPHILS 57.6 % (40-80); PLATELET COUNT 197 10x3/uL (130-400); RBC 4.49 10x6/uL (4.00-5.40); RDW 12.8 % (11.5-14.5); WBC 8.7 10x3/uL (4.8-10.8)
[2018-07-13 04:12] LABS: ALBUMIN 3.3 g/dL (3.4-5.0); BILIRUBIN - TOTAL 0.26 mg/dL (0.2-1.3); CALCIUM 8.7 mg/dL (8.5-10.1); CARBON DIOXIDE 29.6 mmol/L (21.0-32.0); TROPONIN-I 0.054 ng/mL (0.000-0.060)
[2018-07-13 04:13] LABS: ANION GAP 8.6 mmol/L (8-16); POTASSIUM - SERUM 4.2 mmol/L (3.5-5.1)
[2018-07-13 04:30] VITALS: BP 139/70
[2018-07-13 08:47] VITALS: BP 138/58
[2018-07-13 09:22] LABS: CKMB 0.3 U/L (0.0-3.6); CREATINE KINASE 33 UL (21-215); TROPONIN-I 0.018 ng/mL (0.000-0.060)
[2018-07-13 12:53] LABS: PRO BNP 89 pg/mL (0-125); TROPONIN-I < 0.017 ng/mL (0.000-0.060)
[2018-07-13] MEDS ORDERED: BYDUREON P2 MG/0.65 SC (14:36)
[2018-07-13 15:30] LABS: CKMB 0.4 U/L (0.0-3.6); CREATINE KINASE 34 UL (21-215)
[2018-07-13 15:41] LABS: TROPONIN-I < 0.017 ng/mL (0.000-0.060)
[2018-07-13 16:13] VITALS: BP 148/59
[2018-07-13 20:20] VITALS: BP 117/50
[2018-07-14 00:30] VITALS: BP 132/56
[2018-07-14 04:30] VITALS: BP 123/63
[2018-07-14 05:21] LABS: BASOPHILS 0.3 % (0-2); EOSINOPHILS 0.7 % (0-7); HEMATOCRIT 35.6 % (36.0-48.0); HEMOGLOBIN 11.9 g/dL (12-16); IMMATURE GRANULOCYTES 0.3 % (0-5); LYMPHOCYTES 27.8 % (15-50); MCH 28.7 pg (26.0-34.0); MCHC 33.4 g/dL (31.0-37.0); MEAN PLATELET VOLUME 10.6 fL (7.4-10.4); MONOCYTES 7.7 % (2-11); NEUTROPHILS 63.2 % (40-80); PLATELET COUNT 198 10x3/uL (130-400); RBC 4.14 10x6/uL (4.00-5.40); RDW 13.2 % (11.5-14.5); WBC 9.3 10x3/uL (4.8-10.8)
[2018-07-14 05:46] LABS: ALBUMIN 3.1 g/dL (3.4-5.0); ALKALINE PHOSPHATASE 85 U/L (46-116); CALC OSMOLALITY 283 mosm/kg (275-300); CALCIUM 8.9 mg/dL (8.5-10.1); CARBON DIOXIDE 31.5 mmol/L (21.0-32.0); CHLORIDE - SERUM 104 mmol/L (98-107); CREATININE - SERUM 0.9 mg/dL (0.6-1.3); GLUCOSE 128 mg/dL (74-106); PROTEIN - SERUM 6.5 g/dL (6.4-8.2); SODIUM 141 mmol/L (136-145); UREA NITROGEN 16 mg/dL (7-18); eGFR NON AFRICAN AMERICAN 65 mL/min (90-120)
[2018-07-14 05:47] LABS: ALT (SGPT) 11 U/L (10-68); TROPONIN-I < 0.017 ng/mL (0.000-0.060)
[2018-07-14 07:47] VITALS: BP 103/67
[2018-07-14 11:18] VITALS: BP 127/52
[2018-07-14 12:20] VITALS: Ht 160 cm; Wt 80.3 kg
[2018-07-14 14:57] VITALS: BP 118/55
[2018-07-14] MEDS ORDERED: ISOSORBIDE MONO30 M1 PO (15:18)
== END 2018-07-14 17:40 | disposition home or self-care (01) ==
LOC: D.ER 21:09 → OBSVTIME 23:27 → D.M2 23:27
PROVIDERS: Family Medicine; Internal Medicine Cardiovascular Disease
DX: I25.119 Atherosclerotic heart disease of native coronary artery with unspecified angina pectoris (principal); Z95.1 Presence of aortocoronary bypass graft; I11.0 Hypertensive heart disease with heart failure; I50.30 Unspecified diastolic (congestive) heart failure; Z86.73 Personal history of transient ischemic attack (TIA), and cerebral infarction without residual deficits; E11.65 Type 2 diabetes mellitus with hyperglycemia; E11.40 Type 2 diabetes mellitus with diabetic neuropathy, unspecified; F41.8 Other specified anxiety disorders; E78.5 Hyperlipidemia, unspecified; G47.33 Obstructive sleep apnea (adult) (pediatric); E03.9 Hypothyroidism, unspecified; D64.9 Anemia, unspecified

== ENCOUNTER → 2018-10-20 14:21 | Outpatient (CLI) | payer MEDICARE, OTHER ==
[2018-07-14 12:20] VITALS: BMI 31.3
[~2018-10-20 14:21] MED LIST changes: +BYDUREON P2 MG/0.65 SC; +ISOSORBIDE MONO30 M1 PO
[2018-10-20 15:21] LABS: CREATININE - SERUM 0.8 mg/dL (0.6-1.3)
[2018-10-21 09:19] LABS: IMMUNOGLOBULIN A 372 mg/dL (64-422); IMMUNOGLOBULIN M 34 mg/dL (26-217)
[2018-10-22 12:17] LABS: IGG SUBCLASS 1 614 mg/dL (248-810); IGG SUBCLASS 2 303 mg/dL (130-555); IGG SUBCLASS 3 71 mg/dL (15-102); IGG SUBCLASS 4 <1 mg/dL (2-96); IMMUNOGLOBULIN G 1076 mg/dL (700-1600)
[2018-10-22 22:08] LABS: IMMUNOGLOBULIN E 12 IU/mL (0-100)
== END | disposition home or self-care (01) ==
LOC: D.LAB 14:21 → D.CT 15:30 → D.RT 16:00
PROVIDERS: Internal Medicine Pulmonary Disease
DX: R07.9 Chest pain, unspecified (principal); R06.02 Shortness of breath; Z87.891 Personal history of nicotine dependence; Z87.01 Personal history of pneumonia (recurrent)

== ENCOUNTER → 2018-12-18 13:07 | Outpatient (CLI) | payer MEDICARE, OTHER ==
[2018-07-14 12:20] VITALS: BMI 31.3
== END | disposition home or self-care (01) ==
LOC: D.CT 13:07
DX: I63.9 Cerebral infarction, unspecified (principal)

== ENCOUNTER 2019-04-23 16:29 | Emergency (ER) | payer MEDICARE, OTHER ==
[2019-04-23 16:38] VITALS: BMI 30.8
[2019-04-23] MEDS ORDERED: KEPPRA500 MG PO (16:45)
[2019-04-23 17:29] LABS: APTT 27.9 SECONDS (22.8-39.4); INR 0.92 (0.85-1.17); PROTIME 11.9 SECONDS (11.6-15.0)
[2019-04-23 17:37] LABS: ALBUMIN 3.5 g/dL (3.4-5.0); ALKALINE PHOSPHATASE 111 U/L (46-116); ALT (SGPT) 20 U/L (10-68); BILIRUBIN - TOTAL 0.27 mg/dL (0.2-1.3); CALC OSMOLALITY 288 mosm/kg (275-300); CALCIUM 9.3 mg/dL (8.5-10.1); CARBON DIOXIDE 27.2 mmol/L (21.0-32.0); CHLORIDE - SERUM 104 mmol/L (98-107); CREATININE - SERUM 0.9 mg/dL (0.6-1.3); POTASSIUM - SERUM 4.4 mmol/L (3.5-5.1); PROTEIN - SERUM 7.1 g/dL (6.4-8.2); SODIUM 140 mmol/L (136-145); UREA NITROGEN 14 mg/dL (7-18); eGFR NON AFRICAN AMERICAN 65 mL/min (90-120)
[2019-04-23 17:40] LABS: GLUCOSE 262 mg/dL (74-106)
[2019-04-23 17:46] LABS: CKMB 0.5 U/L (0.0-3.6); CREATINE KINASE 39 UL (21-215); MAGNESIUM - SERUM 1.9 mg/dL (1.8-2.4)
[2019-04-23 17:51] LABS: BASOPHILS 0.2 % (0-2); HEMOGLOBIN 12.3 g/dL (12-16); IMMATURE GRANULOCYTES 0.2 % (0-5); LYMPHOCYTES 28.6 % (15-50); MCH 29.1 pg (26.0-34.0); MCHC 34.2 g/dL (31.0-37.0); MCV 85.3 fL (80.0-100.0); MONOCYTES 5.6 % (2-11); NEUTROPHILS 64.4 % (40-80); PLATELET COUNT 214 10x3/uL (130-400); RBC 4.22 10x6/uL (4.00-5.40); RDW 12.8 % (11.5-14.5); TROPONIN-I < 0.017 ng/mL (0.000-0.060); WBC 8.6 10x3/uL (4.8-10.8)
[2019-04-23 18:22] VITALS: BP 121/51
== END 2019-04-23 19:02 | disposition home or self-care (01) ==
LOC: D.ER 16:29
PROVIDERS: Emergency Medicine
DX: R07.9 Chest pain, unspecified (principal); E11.9 Type 2 diabetes mellitus without complications; I10 Essential (primary) hypertension

== ENCOUNTER → 2020-05-18 10:00 | Outpatient (CLI) | payer MEDICARE, OTHER ==
[~2020-05-18 10:00] MED LIST changes: +KEPPRA500 MG PO
== END | disposition home or self-care (01) ==
LOC: D.HCCECHO 04-28 11:00
PROVIDERS: ATTEND Internal Medicine Cardiovascular Disease
DX: I25.10 Atherosclerotic heart disease of native coronary artery without angina pectoris (principal)

== ENCOUNTER → 2021-01-11 11:07 | Outpatient (CLI) | payer MEDICARE, OTHER | END | disposition home or self-care (01) | LOC: D.LAB 11:07 | PROVIDERS: ATTEND Internal Medicine Pulmonary Disease | DX: J45.909 Unspecified asthma, uncomplicated (principal); Z20.822 Contact with and (suspected) exposure to COVID-19 ==

== ENCOUNTER → 2021-01-16 10:52 | Outpatient (CLI) | payer MEDICARE, OTHER ==
[2021-01-16 11:42] LABS: BASOPHILS 0.1 % (0-2); EOSINOPHILS 0.9 % (0-7); HEMATOCRIT 39.1 % (36.0-48.0); IMMATURE GRANULOCYTES 0.1 % (0-5); LYMPHOCYTE ABS# 2.85 10x3/uL (1.18-3.74); LYMPHOCYTES 36.8 % (15-50); MCH 28.8 pg (26.0-34.0); MCHC 33.2 g/dL (31.0-37.0); MCV 86.5 fL (80.0-100.0); MEAN PLATELET VOLUME 9.5 fL (7.4-10.4); MONOCYTES 6.8 % (2-11); NEUTROPHIL ABS# 4.28 10x3/uL (1.56-6.13); NEUTROPHILS 55.3 % (40-80); PLATELET COUNT 216 10x3/uL (130-400); RBC 4.52 10x6/uL (4.00-5.40); RDW 12.7 % (11.5-14.5); WBC 7.8 10x3/uL (4.8-10.8)
== END | disposition home or self-care (01) ==
LOC: D.LAB 08:30 → D.RT 11:30
PROVIDERS: ATTEND Internal Medicine Pulmonary Disease
DX: J45.909 Unspecified asthma, uncomplicated (principal)